=== PATIENT | female | born 1950 | race Caucasian/White ===

== ENCOUNTER 2024-02-29 15:14 | Inpatient (IN) | payer MEDICARE, SELFPAY ==
[2024-02-29] VITALS (17 sets, daily range): BP systolic 107–162; BP diastolic 65–91; BMI 22.9
[2024-02-29] MEDS: SKELAXIN 800 MG PO (11:38)
[2024-02-29] MEDS: LYRICA 150 MG PO (11:38)
[2024-02-29] MEDS: CELEBREX 200 MG PO (11:38)
[2024-02-29] MEDS: TYLENOL 1000 MG PO (11:39)
[2024-02-29] MEDS: NORMOSOL-R/PLASMALYTE-A 1000 IV ×2 (11:47→16:27)
[2024-02-29] MEDS: DILAUDID 0.25 MG IV (15:14)
--- NOTE | 2024-02-29 15:21 | W.PN.UPDATE ---
Update Note
Progress Note Update
Lumbar stenosis w/ neurogenic claudication s/p L4-L5 Posterior Fusion w/ Dr Lubin 02/29/24
DVT prophylaxis - b/l SCDs/TEDs
HTN - + parameters - monitor BP
HLD
RBBB
Hypothyroidism
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
Osteoporosis
PreDM, A1c 6.1
[2024-02-29] MEDS: ZOFRAN 4 MG IV (16:51)
--- NOTE | 2024-02-29 16:58 | SUR.PHASEI ---
received patient in pacu - awaiting room, repositioned, vague c/o of nausea, Treated with Zofran 4mg IV , turns with assistance, vss.
--- NOTE | 2024-02-29 17:25 | SUR.PHASEI ---
nausea has passed, attempting to eat dinner - falls asleep.
--- NOTE | 2024-02-29 17:34 | SUR.PHASEI ---
ate small portion of dinner, falling asleep mid eating, repositioned and slept
[2024-02-29] MEDS: ULTRAM 50 MG PO ×2 (18:30→23:02)
[2024-02-29] MEDS: ANCEF 5 IV (19:48)
[2024-02-29] MEDS: COLACE 100 MG PO (19:49)
[2024-02-29] MEDS: TYLENOL 650 MG PO (19:49)
[2024-02-29] MEDS: SENOKOT 17.2 MG PO (19:49)
[2024-02-29] MEDS: LYRICA 75 MG PO (23:02)
[2024-03-01] MEDS: NORMOSOL-R/PLASMALYTE-A 1000 IV (02:07)
--- NOTE | 2024-03-01 02:37 | PTCARENOTE ---
Pt arrived 1850 via PACU. pT aaox3 but drowsy. VSS. sating 100% 2lO2. NV check WNL. lower back dressing C/D/I. head to toe assessment complete. Pt oriented to room and call barillas. bed in lowest position and locked.
[2024-03-01 03:23] VITALS: BP 103/57
[2024-03-01] MEDS: ANCEF 5 IV (04:12)
[2024-03-01] MEDS: TYLENOL 650 MG PO (04:42)
[2024-03-01] MEDS: ULTRAM 50 MG PO ×2 (04:43→10:36)
[2024-03-01] MEDS: SYNTHROID 88 MCG PO (05:39)
[2024-03-01 07:08] LABS: Blood Urea Nitrogen 13 mg/dl (7-17); Calcium 8.8 mg/dl (8.4-10.2); Carbon Dioxide 27 mmol/L (22-30); Chloride 98 mmol/L (98-107); Estimated Creatinine Clearance 75 ml/min; Glucose 120 mg/dl (70-99); Potassium 4.1 mmol/L (3.5-5.1); Sodium 133 mmol/L (135-145); eGFR > 60.00
[2024-03-01 07:30] VITALS: BP 125/71
[2024-03-01] MEDS: VITAMIN D3 (cholecalciferol) 25 MCG PO (08:16)
[2024-03-01] MEDS: COLACE 100 MG PO (08:16)
[2024-03-01] MEDS: CLARITIN 10 MG PO (08:16)
[2024-03-01] MEDS: SENOKOT 17.2 MG PO (08:16)
[2024-03-01 10:24] VITALS: BP 123/72; PULSE 68; O2SAT 98
[2024-03-01] MEDS: NORMOSOL-R/PLASMALYTE-A IV (10:52)
[2024-03-01 11:25] VITALS: BP 135/76
[2024-03-01 11:34] VITALS: BP 135/76; PULSE 68; O2SAT 98
[2024-03-01] MEDS: LYRICA 75 MG PO (11:46)
--- NOTE | 2024-03-01 12:15 | W.PN.ORTHO ---
Today's Communication / Plan
-
D/c today since clinically stable.
Assessment
.
Distal Motor Intact: Yes
Dressing:
Clean, dry and intact.
Assessment:
Lumbar stenosis w/ neurogenic claudication s/p L4-L5 Posterior Fusion w/ Dr Lubin 02/29/24
DVT prophylaxis - b/l SCDs/TEDs
HTN - + parameters - BPs overall stable
HLD
RBBB
Hypothyroidism
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
Osteoporosis
PreDM, A1c 6.1
Plan
.
Surgery / Date: L4-L5 Posterior Fusion w/ Dr Lubin 02/29/24
DVT Prophylaxis: Other (b/l SCDs/TEDs)
Activity:
Out of bed.
PT/OT
Discharge Plan: Home
Subjective
.
.:
Patient resting comfortably in her chair.
Low back pain minimal w/ current pain meds.
Denies any new significant complaints.
Eager for potential d/c today.
Vital Signs and Labs
.
Vital Signs and Labs:
Lab Results
03/01/24 05:33
03/01/24 05:33
Temp Pulse Resp BP Pulse Ox
97.8 F 68 18 135/76 99
03/01/24 11:25 03/01/24 11:25 03/01/24 11:25 03/01/24 11:25 03/01/24 11:25
Physical Exam
-
HEENT: No pallor, cyanosis, or jaundice. Throat clear.
NECK: Supple. No JVD.
RESPIRATORY: Lungs clear to auscultation.
CVS: S1, S2 normal. RRR.�
ABDOMEN: Soft, non-tender. No distension.
EXTREMITIES: Strength equal, no calf pain with palpation/dorsiflexion. Calves soft.
MACHINE CLOTH MEASURER: AOx3. No focal deficits. utility bill complaints investigator grossly intact
--- NOTE | 2024-03-01 12:25 | W.DS.TRANS ---
DC Summary - Health Care Coordinator
-
Discharge Instructions:
Sleep Apnea Risk Low
Discharge Diagnosis/Procedures Lumbar stenosis w/ neurogenic claudication s/p
L4-L5 Posterior Fusion w/ Dr Lubin 02/29/24
Diet Regular
Activity As tolerated
Additional Activity No heavy lifting >10 lbs
Driving Restrictions Not until seen by your Dr
Bathing Restrictions OK to shower in 4 days
Instructions:
Stand-Alone Forms: [facility] Lumbar D/C Inst.
Changes to Home Medications: Yes
Discharge Medications:
DC Medications w/original date entered in [facility]
Liposomal C 1 dose PO DAILY Supplement 02/27/24
azelastine 137 mcg (0.1 %) nasal spray 2 spray intranasal BID Congestion 02/27/24
biotin 1 mg capsule 1 mg PO DAILY Supplement 02/27/24
calcium 275 mg-D3 25 mcg and choline 60 mg-silicon 3 mg capsules (OSAplex) 1 cap PO DAILY Supplement 02/27/24
cholecalciferol (vitamin D3) 25 mcg (1,000 unit) capsule (Vitamin D3) 25 mcg PO DAILY Supplement 02/27/24
fexofenadine 180 mg tablet 180 mg PO DAILY Allergies 02/27/24
fluticasone propionate 50 mcg/actuation nasal spray,suspension (Flonase Allergy Relief) 2 spray intranasal HS Congestion 02/27/24
lactobacillus combination no.4 3 billion cell capsule (Probiotic) 3,000 mmu cells PO DAILY Supplement 02/27/24
levothyroxine 88 mcg tablet 1 mcg PO DAILY Thyroid 02/27/24
magnesium gluconate 12.5 mg magnesium (250 mg) tablet 1 mg PO DAILY Supplement 02/27/24
vitamin B complex 1 cap PO BID Supplement 02/27/24
vitamin B12 0.5 mg-folic acid 1 mg tablet 1 tab PO DAILY Supplement 02/27/24
acetaminophen 500 mg tablet 1,000 mg (2 x 500 mg) PO Q6H #30 tabs 03/01/24
cephalexin 500 mg capsule 500 mg PO QID #20 caps 03/01/24
docusate sodium 100 mg capsule 100 mg PO BID #30 caps 03/01/24
hydrochlorothiazide 12.5 mg tablet 25 mg (2 x 12.5 mg) PO DAILY Fluid Retention/Swelling #1 tab 03/01/24
ondansetron HCl 4 mg tablet 4 mg PO Q6H PRN nausea and vomiting #30 tabs 03/01/24
pregabalin 75 mg capsule 75 mg PO BID neuropathic pain #15 caps 03/01/24
sennosides 8.6 mg tablet (Senna Laxative) 17.2 mg (2 x 8.6 mg) PO BID #30 tabs 03/01/24
tramadol 50 mg tablet 50 - 100 mg (1 - 2 x 50 mg) PO Q6H PRN moderate-severe pain #30 tabs 03/01/24
verapamil 120 mg tablet 120 mg PO DAILY Blood Pressure #1 tab 03/01/24
Home Medication Changes
acetaminophen 500 mg tablet 1,000 mg (2 x 500 mg) PO Q6H #30 tabs 03/01/24
cephalexin 500 mg capsule 500 mg PO QID #20 caps 03/01/24
docusate sodium 100 mg capsule 100 mg PO BID #30 caps 03/01/24
ondansetron HCl 4 mg tablet 4 mg PO Q6H PRN nausea and vomiting #30 tabs 03/01/24
pregabalin 75 mg capsule 75 mg PO BID neuropathic pain #15 caps 03/01/24
sennosides 8.6 mg tablet (Senna Laxative) 17.2 mg (2 x 8.6 mg) PO BID #30 tabs 03/01/24
tramadol 50 mg tablet 50 - 100 mg (1 - 2 x 50 mg) PO Q6H PRN moderate-severe pain #30 tabs 03/01/24
Pending Results: No
--- NOTE | 2024-03-01 14:41 | CM ---
Met with patient.
IA completed. Case management consult completed. Declines VN
Patient lives at home with her in an apartment, no steps
PLOF: Independent, drives
No needs
PCP: Danii Gamino
Plan: [facility], [facility]
PLAN: Discharge home no needs
/son to transport
== END 2024-03-01 13:11 | disposition home or self-care (01) | DRG 460 ==
LOC: 2 SOUTH 15:14
PROVIDERS: Physician Assistant; ADMITTING PHYSICIAN Orthopaedic Surgery Orthopaedic Surgery of the Spine; FAMILY PHYSICIAN Family Medicine
PROC: 0SG00K1 Fusion of Lumbar Vertebral Joint with Nonautologous Tissue Substitute, Posterior Approach, Posterior Column, Open Approach (ICD-10-PCS; 2024-02-29)
DX: M48.061 Spinal stenosis, lumbar region without neurogenic claudication (principal); M43.10 Spondylolisthesis, site unspecified; I10 Essential (primary) hypertension
CPT/HCPCS: 72100; 76000; 80048; 85014; 85018; 87070; 97116; 97162; 97166; 97530; 97535; C1713; C1776